=== PATIENT | male | born 1930 | race Caucasian/White ===

== ENCOUNTER 2017-07-03 20:42 | Emergency (ER) | payer MEDICARE, BC ==
[~2017-07-03] VITALS: Ht 182.9 cm; Wt 72.6 kg
--- NOTE | ~2017-07-03 | EKG ---
PATIENT: ROGELIO GALINDO UNIT #: [id number] Ventricular Rate: 65 BPM Atrial Rate: 65 BPM P-R Interval: 176 ms QRS Duration: 162 ms Q-T Interval: 448 ms QTC Calculation(Bezet): 465 ms P [place]: 71 degrees Calculated R [place]: -80 degrees Calculated T [place]: 90 degrees Diagnosis Line: Sinus rhythm with occasional Premature ventricular Diagnosis Line: complexes and Fusion complexes Diagnosis Line: Left axis deviation Diagnosis Line: Right bundle branch block Diagnosis Line: Cannot rule out Anterior infarct , age Diagnosis Line: undetermined Diagnosis Line: Abnormal ECG Diagnosis Line: When compared with ECG of 03-JAN-2010 08:06, Diagnosis Line: Significant changes have occurred Diagnosis Line: Confirmed by JEFRY COCHRAN MD ([id number]) on Diagnosis Line: 07/04/2017 10:55:13 AM INTERPRETING MD: SAMMIE RAMIREZ
--- NOTE | ~2017-07-03 | CR72 ---
[facility]. [facility] A Service of [facility] & [facility] / [facility] RADIOLOGY TEXT RESULTS PATIENT: ROGEILO GALINDO LOCATION: SED : 30 UNIT #: [id number] AGE: [address]: Dario Gallardo MD SEX: M ORDER DR: [id number] [place] [id number] E MR#: [id number] Acc #: [id number] NAME: ROGELIO GALINDO : 1930 SEX: M STUDY DATE/TIME: 07/03/2017 21:51 UNIT: SED ROOM: STUDY DESCRIPTION: CR Chest Single View Portable Attending Physician: Dario Gallardo M.D. Ordering Physician: Dario Gallardo M.D. Primary Care Physician: Hugo Ayala M.D. MEDICAL IMAGING REPORT This report is preliminary unless electronic signature is present. EXAM Portable chest 07/03/2017. HISTORY 87-year-old male with shortness of air for 1 week. COMPARISON Chest 12/26/2010. FINDINGS Frontal chest demonstrates clear lungs. No pleural effusion or pneumothorax. Heart size and mediastinum within expected limits. Pulmonary vasculature unremarkable. Left-sided pacing complex. IMPRESSION No acute cardiopulmonary findings. Dictated by... Swapnil Lerma M.D. THIS IS AN ELECTRONICALLY VERIFIED REPORT Swapnil Lerma M.D. at 07/04/2017 4:45 PM JKB/stephen TD: 07/04/2017 08:34 JOB #: [id number] MEDICAL IMAGING REPORT Page 1 of 1
--- NOTE | ~2017-07-03 | US84 ---
[id number] [address] [address] [id number] E MR#: [id number] Acc #: [id number] NAME: ROGELIO GALINDO : 1930 SEX: M STUDY DATE/TIME: 07/03/2017 23:23 UNIT: SED ROOM: STUDY DESCRIPTION: US LE Veins Complete Demarco Stdy Attending Physician: Dario Gallardo M.D. Ordering Physician: Dario Gallardo M.D. Primary Care Physician: Hugo Ayala M.D. MEDICAL IMAGING REPORT This report is preliminary unless electronic signature is present. EXAM Bilateral lower extremity venous Doppler INDICATIONS Bilateral lower extremity edema for the past week. PROCEDURE Pretty-scale, color Doppler, spectral imaging deep veins of the right leg. COMPARISON None FINDINGS Deep veins in the right leg compress normally, show normal color Doppler and spectral characteristics. IMPRESSION No evidence for DVT in the right or left leg. Dictated by... Miguel Ángel Garcia M.D. THIS IS AN ELECTRONICALLY VERIFIED REPORT Miguel Ángel Garcia M.D. at 07/08/2017 8:54 AM EED/caroline TD: 07/04/2017 10:29 JOB #: [id number] MEDICAL IMAGING REPORT Page 1 of 1
[~2017-07-03 20:42] MED LIST: ATENOLOL; ATIVAN; AUGMENTIN PO; HCTZ; LISINOPRIL; PAXIL PO; TRAZODONE PO; ZOCOR
[2017-07-03] MEDS ORDERED: HYDROCODON-ACE1 EAC7 PO (20:57)
[2017-07-03] MEDS ORDERED: LORAZEPAM0.5 MG PO (20:57)
[2017-07-03] MEDS ORDERED: SIMVASTATIN40 MG PO (20:58)
[2017-07-03] MEDS ORDERED: DESYREL50 MG PO (20:58)
[2017-07-03] MEDS ORDERED: PAXIL30 MG PO (20:59)
[2017-07-03] MEDS ORDERED: PRINIVIL20 M1 PO (20:59)
[2017-07-03 22:00] LABS: BASOPHIL% 0.9 % (0-2.5); EOSINOPHIL# 0.1 X10e3 (0-0.7); EOSINOPHIL% 2.8 % (0.0-7.0); HEMATOCRIT 36.1 % (38.0-50.0); HEMOGLOBIN 12.7 gm/dL (13.0-16.0); LYMPHOCYTE# 0.6 X10e3 (1.0-3.5); LYMPHOCYTE% 16.2 % (17.0-45.0); MEAN CELL VOLUME 90.3 FL (83-96); MEAN CORPUSCULAR HEMOGLOBIN 31.7 PG (28-34); MEAN CORPUSCULAR HGB CONC 35.1 g/dL (30-36); MEAN PLATELET VOLUME 7.3 FL (6.5-11.5); MONOCYTE# 0.5 X10e3 (0-1.0); MONOCYTE% 12.4 % (3.0-12.0); NEUTROPHIL# 2.5 X10e3 (1.5-7.1); NEUTROPHIL% 67.7 % (40-75); PLATELET COUNT 115 X10e3 (140-420); RED CELL DISTRIBUTION WIDTH 14.3 % (11.0-15.5); WHITE BLOOD COUNT 3.7 X10e3 (4.0-10.5)
[2017-07-03 22:06] LABS: DIFF IND NO
[2017-07-03 22:11] LABS: INR 1.1; PROTHROMBIN TIME (PATIENT) 12.6 SECONDS (9.5-12.4)
[2017-07-03 22:13] LABS: POC - CKMB <1.0 ng/mL (0.0-7.9); POC - MYOGLOBIN 83.3 ng/mL (0.0-169.0); POC - TROPONIN <0.05 ng/mL (<=0.05)
[2017-07-03 22:18] LABS: ALBUMIN SERUM 3.9 g/dL (3.5-5.0); BILIRUBIN,TOTAL 0.9 mg/dL (0.2-2.0); CALCIUM SERUM 9.2 mg/dL (8.4-10.2); GLOM FILT RATE Estimated 67.4 mL/min (>60); POTASSIUM 4.3 mmol/L (3.5-5.1); PROTEIN TOTAL SERUM 6.6 g/dL (6.0-8.3)
[2017-07-03 22:19] LABS: PARTIAL THROMBOPLASTIN TIME 29.4 SECONDS (25.6-38.1)
== END 2017-07-04 01:57 | disposition home or self-care (01) ==
LOC: SED 20:42
DX: R60.0 Localized edema (principal); I25.10 Atherosclerotic heart disease of native coronary artery without angina pectoris
CPT/HCPCS: 36415; 71010; 80053; 82553; 83874; 83880; 84443; 84484; 85025; 85610; 85730; 93005; 93970; 96374; 99284; J2270